=== PATIENT | female | born 1955 | race Caucasian/White ===

== ENCOUNTER → 2019-02-10 | Outpatient (CLI) | payer BC ==
[~2019-02-10] MED LIST: AUGMENTIN 875-1 EACH PO; BIOTIN5 MG PO; CENTRUM SILVER1 EAC4 PO; ENJUVIA0.9 MG PO; ENJUVIA1.25 MG PO; MELOXICAM7.5 MG PO; MOBIC7.5 MG PO; NORCO 5-325 TA1 EACH PO; PAXIL CR12.5 MG PO; PREVACID 30MG C30 M1 PG; PRILOSEC 20 MG20 MG PO; TRAMADOL 50 MG50 MG PO; TYLENOL EX-STR500 M2 PO; VITAMIN D5000 UNI1 PO
[2019-02-10 12:52] LABS: HEMATOCRIT 42.8 % (37.0-47.0); HEMOGLOBIN 14.6 gm/dL (12.0-15.0); MCH 30.7 pg (26.0-34.0); MCHC 34.2 g/dL (28.0-37.0); PLATELET COUNT 240 thou/uL (150-400); RBC 4.76 mil/uL (4.20-5.00); RDW 12.9 % (10.5-14.5); WBC 3.5 thou/uL (4.0-11.0)
[2019-02-10 13:09] LABS: ALBUMIN 4.4 g/dL (3.4-5.0); CALCIUM 9.8 mg/dL (8.5-10.1); CREATININE 0.8 mg/dL (0.6-1.0); POTASSIUM 4.2 mmol/L (3.5-5.1); TOTAL BILIRUBIN 0.7 mg/dL (<0.1-1.0); TOTAL PROTEIN 7.1 g/dL (6.4-8.2)
[2019-02-10 13:20] LABS: ABSOLUTE NEUTROPHILS 0.6 thou/uL (1.4-8.2); ATYPICAL LYMPHS 4 %; PLATELET ESTIMATE NORMAL
== END ==
LOC: LABMALL 12:13 → CAT 12:13
PROVIDERS: Nurse Practitioner
DX: K76.89 Other specified diseases of liver (principal); K57.30 Diverticulosis of large intestine without perforation or abscess without bleeding; M51.37 Other intervertebral disc degeneration, lumbosacral region; Z90.710 Acquired absence of both cervix and uterus